=== PATIENT | female | born 1950 | race Caucasian/White ===

== ENCOUNTER → 2023-08-31 10:31 | Outpatient (REF) | payer MEDICARE, OTHER, SELFPAY ==
[2023-08-31 14:11] LABS: Erythrocyte Sed Rate 4 mm/hour (0-20)
[2023-08-31 14:22] LABS: ALT (SGPT) 71 U/L (0-35); AST (SGOT) 46 U/L (14-36); Albumin 3.6 g/dl (3.5-5.0); Alkaline Phosphatase 87 U/L (38-126); Blood Urea Nitrogen 32 mg/dl (7-17); Calcium 9.3 mg/dl (8.4-10.2); Carbon Dioxide 32 mmol/L (22-30); Chloride 100 mmol/L (98-107); Glucose 87 mg/dl (70-99); Potassium 4.9 mmol/L (3.5-5.1); Sodium 138 mmol/L (135-145); Total Bilirubin 1.3 mg/dl (0.2-1.3); eGFR > 60.00
== END ==
LOC: HWLAB 10:31
PROVIDERS: ATTENDING PHYSICIAN Internal Medicine Rheumatology; FAMILY PHYSICIAN Nurse Practitioner Family
DX: M35.3 Polymyalgia rheumatica (principal); M81.0 Age-related osteoporosis without current pathological fracture; Z51.81 Encounter for therapeutic drug level monitoring
CPT/HCPCS: 36415; 80053; 85652; 86140

== ENCOUNTER → 2023-09-28 09:04 | Outpatient (REF) | payer MEDICARE, OTHER, SELFPAY ==
[2023-09-28 12:03] LABS: % Basophils 0.5 % (0-2); % Eosinophils 0.6 % (0-6); % Immature Granulocytes 3.4 % (0-0.5); % Lymphocytes 16.2 % (20.5-51.1); % Monocytes 5.6 % (1.7-9.3); % Neutrophils 73.7 % (42.2-75.2); Absolute Basophils 0.1 10^3/uL (0-0.2); Absolute Eosinophils 0.1 10^3/uL (0-0.7); Absolute Immature Granulocytes 0.3 10^3/uL (0-0.05); Absolute Lymphocytes 1.5 10^3/uL (1.2-3.4); Absolute Monocytes 0.5 10^3/uL (0.1-0.6); Absolute Neutrophils 6.9 10^3/uL (1.4-6.5); Hematocrit 43.1 % (37.0-47.0); Hemoglobin 14.5 g/dL (12.0-16.0); Mean Corp Hgb Conc. 33.6 g/dL (33.0-37.0); Mean Corpuscular Volume 86.2 fL (81.0-99.0); Mean Platelet Volume 9.3 fL (7.4-10.4); Nucleated Red Blood Cells % 0 %; Platelet Count 242 10^3/uL (130-400); Red Cell Dist. Width 14.5 % (11.5-14.5); White Blood Cell Count 9.4 10^3/uL (4.8-10.8)
[2023-09-28 12:13] LABS: ALT (SGPT) 46 U/L (0-35); AST (SGOT) 42 U/L (14-36); Albumin 3.8 g/dl (3.5-5.0); Alkaline Phosphatase 81 U/L (38-126); Blood Urea Nitrogen 27 mg/dl (7-17); Calcium 9.6 mg/dl (8.4-10.2); Carbon Dioxide 33 mmol/L (22-30); Chloride 97 mmol/L (98-107); Glucose 124 mg/dl (70-99); Potassium 4.8 mmol/L (3.5-5.1); Sodium 136 mmol/L (135-145); Total Bilirubin 1.4 mg/dl (0.2-1.3); Total Protein 6.5 g/dl (6.3-8.2); eGFR > 60.00
[2023-09-28 12:20] LABS: Erythrocyte Sed Rate 12 mm/hour (0-20)
[2023-09-28 12:47] LABS: Hepatitis B Surface Antigen Negative (Negative)
[2023-09-28 12:53] LABS: Hepatitis B Core Ab, IgM Negative (Negative)
[2023-09-28 12:55] LABS: HIV Combo Negative (Negative)
[2023-09-28 13:06] LABS: Hepatitis B Core Ab, Total Negative (Negative); Hepatitis B Surface Antibody Negative; Hepatitis C Antibody Negative (Negative)
[2023-10-01 06:51] LABS: Quantiferon NIL 0.06 IU/mL; Quantiferon TB Gold Plus Negative (Negative)
== END ==
LOC: HWLAB 09:04
PROVIDERS: ATTENDING PHYSICIAN Internal Medicine Rheumatology; FAMILY PHYSICIAN Nurse Practitioner Family
DX: M19.012 Primary osteoarthritis, left shoulder (principal); M35.3 Polymyalgia rheumatica; M81.0 Age-related osteoporosis without current pathological fracture; R76.12 Nonspecific reaction to cell mediated immunity measurement of gamma interferon antigen response without active tuberculosis; Z51.81 Encounter for therapeutic drug level monitoring
CPT/HCPCS: 36415; 80053; 85025; 85652; 86140; 86480; 86704; 86705; 86706; 86803; 87340; 87389

== ENCOUNTER → 2023-11-29 12:09 | Outpatient (REF) | payer MEDICARE, OTHER, SELFPAY ==
[2023-11-29 14:48] LABS: % Basophils 1.1 % (0-2); % Eosinophils 1.8 % (0-6); % Immature Granulocytes 0.6 % (0-0.5); % Lymphocytes 30.7 % (20.5-51.1); % Monocytes 9.5 % (1.7-9.3); % Neutrophils 56.3 % (42.2-75.2); Absolute Basophils 0.1 10^3/uL (0-0.2); Absolute Eosinophils 0.1 10^3/uL (0-0.7); Absolute Lymphocytes 1.9 10^3/uL (1.2-3.4); Absolute Monocytes 0.6 10^3/uL (0.1-0.6); Absolute Neutrophils 3.5 10^3/uL (1.4-6.5); Hematocrit 44.8 % (37.0-47.0); Hemoglobin 14.7 g/dL (12.0-16.0); Mean Corp Hgb Conc. 32.8 g/dL (33.0-37.0); Mean Corpuscular Hgb 30.4 pg (27.0-31.0); Mean Corpuscular Volume 92.8 fL (81.0-99.0); Mean Platelet Volume 9.5 fL (7.4-10.4); Nucleated Red Blood Cells % 0 %; Platelet Count 161 10^3/uL (130-400); Red Blood Cell Count 4.83 10^6/uL (4.20-5.40); Red Cell Dist. Width 13.8 % (11.5-14.5); White Blood Cell Count 6.2 10^3/uL (4.8-10.8)
[2023-11-29 14:59] LABS: Erythrocyte Sed Rate 1 mm/hour (0-20)
[2023-11-29 15:23] LABS: ALT (SGPT) 39 U/L (0-35); AST (SGOT) 39 U/L (14-36); Albumin 4.4 g/dl (3.5-5.0); Alkaline Phosphatase 52 U/L (38-126); Blood Urea Nitrogen 24 mg/dl (7-17); Calcium 9.3 mg/dl (8.4-10.2); Carbon Dioxide 33 mmol/L (22-30); Chloride 103 mmol/L (98-107); Glucose 128 mg/dl (70-99); HDL Cholesterol 71 mg/dl; LDL Cholesterol, Calculated 69 mg/dl; Sodium 138 mmol/L (135-145); Total Bilirubin 1.1 mg/dl (0.2-1.3); Total Cholesterol 184 mg/dl (50-199); Total Protein 6.6 g/dl (6.3-8.2); Triglyceride 224 mg/dl (10-149); Very Low Density Lipoprotein 44 mg/dl (0-30); eGFR > 60.00
[2023-11-29 15:27] LABS: C-Reactive Protein < 5.00 mg/L (0.0-10.00)
[2023-11-29 16:02] LABS: TSH Reflex To Free T4 1.07 uIU/ml (0.47-4.68)
[2023-11-30 08:59] LABS: Glycohemoglobin (HgbA1c) 6.7 % (4.0-5.6)
== END ==
LOC: HWLAB 12:09
PROVIDERS: ATTENDING PHYSICIAN Internal Medicine Rheumatology; FAMILY PHYSICIAN Nurse Practitioner Family; REFERRING PHYSICIAN Nurse Practitioner
DX: Z95.2 Presence of prosthetic heart valve (principal); R60.0 Localized edema; R73.03 Prediabetes; M19.012 Primary osteoarthritis, left shoulder; M35.3 Polymyalgia rheumatica; M81.0 Age-related osteoporosis without current pathological fracture; Z51.81 Encounter for therapeutic drug level monitoring; I10 Essential (primary) hypertension
CPT/HCPCS: 36415; 80053; 80061; 83036; 84443; 85025; 85652; 86140

== ENCOUNTER → 2023-12-18 08:14 | Outpatient (REF) | payer MEDICARE, OTHER, SELFPAY | LOC: HWRCS 08:14 | PROVIDERS: ATTENDING PHYSICIAN Internal Medicine Cardiovascular Disease; FAMILY PHYSICIAN Nurse Practitioner Family | DX: Z95.2 Presence of prosthetic heart valve (principal) | CPT/HCPCS: 93306 ==

== ENCOUNTER → 2024-07-14 08:42 | Outpatient (REF) | payer MEDICARE, OTHER, SELFPAY ==
[2024-07-14 12:25] LABS: % Basophils 1.4 % (0-2); % Immature Granulocytes 0.2 % (0-0.5); % Lymphocytes 32.4 % (20.5-51.1); % Monocytes 12.6 % (1.7-9.3); % Neutrophils 49.4 % (42.2-75.2); Absolute Basophils 0.1 10^3/uL (0-0.2); Absolute Eosinophils 0.2 10^3/uL (0-0.7); Absolute Lymphocytes 1.4 10^3/uL (1.2-3.4); Absolute Monocytes 0.5 10^3/uL (0.1-0.6); Absolute Neutrophils 2.1 10^3/uL (1.4-6.5); Hematocrit 47.7 % (37.0-47.0); Hemoglobin 15.6 g/dL (12.0-16.0); Mean Corp Hgb Conc. 32.7 g/dL (33.0-37.0); Mean Corpuscular Hgb 30.5 pg (27.0-31.0); Mean Corpuscular Volume 93.3 fL (81.0-99.0); Mean Platelet Volume 9.9 fL (7.4-10.4); Nucleated Red Blood Cells % 0 %; Platelet Count 158 10^3/uL (130-400); Red Blood Cell Count 5.11 10^6/uL (4.20-5.40); Red Cell Dist. Width 12.2 % (11.5-14.5); White Blood Cell Count 4.3 10^3/uL (4.8-10.8)
[2024-07-14 12:35] LABS: Erythrocyte Sed Rate 10 mm/hour (0-20)
[2024-07-14 12:37] LABS: ALT (SGPT) 43 U/L (0-35); AST (SGOT) 51 U/L (14-36); Albumin 4.7 g/dl (3.5-5.0); Alkaline Phosphatase 35 U/L (38-126); Blood Urea Nitrogen 19 mg/dl (7-17); Calcium 9.5 mg/dl (8.4-10.2); Carbon Dioxide 34 mmol/L (22-30); Chloride 100 mmol/L (98-107); Glucose 114 mg/dl (70-99); HDL Cholesterol 59 mg/dl; LDL Cholesterol, Calculated 91 mg/dl; Potassium 4.1 mmol/L (3.5-5.1); Sodium 140 mmol/L (135-145); Total Bilirubin 1.6 mg/dl (0.2-1.3); Total Cholesterol 182 mg/dl (50-199); Total Protein 7.1 g/dl (6.3-8.2); Triglyceride 164 mg/dl (10-149); Very Low Density Lipoprotein 32 mg/dl (0-30); eGFR > 60.00
[2024-07-14 12:42] LABS: C-Reactive Protein < 5.00 mg/L (0.0-10.00)
[2024-07-14 13:04] LABS: Microalbumin, Random Urine 1.9 mg/dl (0.6-1.7); Microalbumin/creatinine Ratio 22.4 mg/g
[2024-07-14 13:06] LABS: Glycohemoglobin (HgbA1c) 5.8 % (4.0-5.6)
[2024-07-14 13:12] LABS: TSH Reflex To Free T4 1.28 uIU/ml (0.47-4.68)
== END ==
LOC: HWLAB 08:42
PROVIDERS: ATTENDING PHYSICIAN Internal Medicine Rheumatology; FAMILY PHYSICIAN Nurse Practitioner Family
DX: Z00.00 Encounter for general adult medical examination without abnormal findings (principal); B37.9 Candidiasis, unspecified; Z12.31 Encounter for screening mammogram for malignant neoplasm of breast; I48.0 Paroxysmal atrial fibrillation; E03.9 Hypothyroidism, unspecified; I10 Essential (primary) hypertension; I25.10 Atherosclerotic heart disease of native coronary artery without angina pectoris; M35.3 Polymyalgia rheumatica; M81.0 Age-related osteoporosis without current pathological fracture; R73.01 Impaired fasting glucose; Z12.11 Encounter for screening for malignant neoplasm of colon; R94.5 Abnormal results of liver function studies; E78.5 Hyperlipidemia, unspecified; E11.9 Type 2 diabetes mellitus without complications; M19.012 Primary osteoarthritis, left shoulder; M31.6 Other giant cell arteritis; Z51.81 Encounter for therapeutic drug level monitoring
CPT/HCPCS: 36415; 80053; 80061; 82043; 82570; 83036; 84443; 85025; 85652; 86140

== ENCOUNTER → 2024-11-04 10:09 | Outpatient (REF) | payer MEDICARE, OTHER, SELFPAY | LOC: HWRAD 10:09 | PROVIDERS: ATTENDING PHYSICIAN Nurse Practitioner Family | DX: R05.9 Cough, unspecified (principal) | CPT/HCPCS: 71046 ==

== ENCOUNTER → 2024-12-09 11:28 | Outpatient (REF) | payer MEDICARE, OTHER, SELFPAY ==
[2024-12-09 15:49] LABS: % Basophils 1.6 % (0-2); % Eosinophils 4.9 % (0-6); % Immature Granulocytes 0.2 % (0-0.5); % Lymphocytes 36.6 % (20.5-51.1); % Monocytes 10.6 % (1.7-9.3); % Neutrophils 46.1 % (42.2-75.2); Absolute Basophils 0.1 10^3/uL (0-0.2); Absolute Eosinophils 0.2 10^3/uL (0-0.7); Absolute Lymphocytes 1.6 10^3/uL (1.2-3.4); Absolute Monocytes 0.5 10^3/uL (0.1-0.6); Hematocrit 42.3 % (37.0-47.0); Hemoglobin 14.4 g/dL (12.0-16.0); Mean Corpuscular Hgb 30.3 pg (27.0-31.0); Mean Corpuscular Volume 89.1 fL (81.0-99.0); Mean Platelet Volume 10.3 fL (7.4-10.4); Nucleated Red Blood Cells % 0 %; Platelet Count 145 10^3/uL (130-400); Red Blood Cell Count 4.75 10^6/uL (4.20-5.40); Red Cell Dist. Width 12.5 % (11.5-14.5); White Blood Cell Count 4.3 10^3/uL (4.8-10.8)
[2024-12-09 15:57] LABS: ALT (SGPT) 43 U/L (0-35); AST (SGOT) 44 U/L (14-36); Albumin 4.3 g/dl (3.5-5.0); Alkaline Phosphatase 34 U/L (38-126); Blood Urea Nitrogen 20 mg/dl (7-17); Calcium 8.8 mg/dl (8.4-10.2); Carbon Dioxide 28 mmol/L (22-30); Chloride 109 mmol/L (98-107); Glucose 119 mg/dl (70-99); Potassium 4.2 mmol/L (3.5-5.1); Sodium 140 mmol/L (135-145); Total Bilirubin 1.5 mg/dl (0.2-1.3); Total Protein 6.4 g/dl (6.3-8.2); eGFR > 60.00
[2024-12-09 16:12] LABS: C-Reactive Protein < 5.00 mg/L (0.0-10.00)
[2024-12-09 16:31] LABS: Erythrocyte Sed Rate 1 mm/hour (0-20)
== END ==
LOC: HWLAB 11:28
PROVIDERS: ATTENDING PHYSICIAN Internal Medicine Rheumatology; FAMILY PHYSICIAN Nurse Practitioner Family
DX: M19.012 Primary osteoarthritis, left shoulder (principal); M31.6 Other giant cell arteritis; M35.3 Polymyalgia rheumatica; M81.0 Age-related osteoporosis without current pathological fracture; Z51.81 Encounter for therapeutic drug level monitoring
CPT/HCPCS: 36415; 80053; 85025; 85652; 86140

== ENCOUNTER 2025-01-02 15:55 | Observation (INO) | payer MEDICARE, OTHER, SELFPAY ==
[2025-01-02] VITALS (8 sets, daily range): BP systolic 132–180; BP diastolic 55–78; PULSE 65; BMI 34.0; BMI 32.7
[2025-01-02 11:31] LABS: % Basophils 0.9 % (0-2); % Eosinophils 2.8 % (0-6); % Immature Granulocytes 0.4 % (0-0.5); % Lymphocytes 28.7 % (20.5-51.1); % Monocytes 9.5 % (1.7-9.3); % Neutrophils 57.7 % (42.2-75.2); Absolute Basophils 0.1 10^3/uL (0-0.2); Absolute Eosinophils 0.2 10^3/uL (0-0.7); Absolute Lymphocytes 2.2 10^3/uL (1.2-3.4); Absolute Monocytes 0.7 10^3/uL (0.1-0.6); Absolute Neutrophils 4.4 10^3/uL (1.4-6.5); Hematocrit 42.6 % (37.0-47.0); Hemoglobin 14.9 g/dL (12.0-16.0); Mean Corpuscular Hgb 30.7 pg (27.0-31.0); Mean Corpuscular Volume 87.7 fL (81.0-99.0); Mean Platelet Volume 9.5 fL (7.4-10.4); Nucleated Red Blood Cells % 0 %; Platelet Count 157 10^3/uL (130-400); Red Blood Cell Count 4.86 10^6/uL (4.20-5.40); Red Cell Dist. Width 12.5 % (11.5-14.5); White Blood Cell Count 7.6 10^3/uL (4.8-10.8)
[2025-01-02 11:47] LABS: Blood Urea Nitrogen 16 mg/dl (7-17); Calcium 9.3 mg/dl (8.4-10.2); Carbon Dioxide 32 mmol/L (22-30); Chloride 104 mmol/L (98-107); Estimated Creatinine Clearance 76 ml/min; Glucose 123 mg/dl (70-99); Sodium 141 mmol/L (135-145); eGFR > 60.00
--- NOTE | 2025-01-02 14:13 | ED.GENMED ---
History of Present Illness
General
Chief Complaint: Dizziness
Source: patient and family (daughters at bedside)
Exam Limitations: none
Time Seen by Provider: 01/02/25 11:48
Nursing documentation reviewed up to this point in time: agreed with
History of Present Illness
History of Present Illness:
75 yo female w h/o aortic stenosis, atrial fibrillation on Coumadin, history of PMR, giant cell arteritis diagnosed 1.5 years ago and was on Actemra IV infusions monthly until it was DC'd 2 weeks ago due to a sinus infection and UTI.
Patient is here for sudden onset nausea, dizziness, perioral and left hand numbness while she was sitting, talking with her daughter 10 a.m.
Had similar symptoms 5 days ago, evaluated at [facility] with neg head CT. On arrival, pt w mild nausea but no other symptoms as long as she was still. Dizzy with moving head.
No recent trauma
Was on Actemera for head pains due to GCA and that was DC'd, and her head pains have started again.
Past History
Past History
ED Past Medical History: Arrthythmia, Cancer (Ovarian cancer), HTN, Hypercholesterolemia and Hypothyroidism
ED Past Surgical History: Cardiac (Aortic and mitral valve repair, 2016... Pacemaker), Gynecological, Orthopedic and Other (Thyroidectomy)
Social History
Tobacco: Former smoker
Alcohol: None
Drug: None
Personal:
Living: with family
Review of Systems
Review of Systems
Allergies reviewed?: Yes
All Other Systems: ROS reviewed and negative except as documented in HPI and ROS
Constitutional: Denies fever or fatigue
Respiratory: Denies trouble breathing
Cardiac: Denies chest pain
ABD/GI: Reports nausea; Denies abdominal pain, vomiting or diarrhea
: Denies dysuria, incontinence or difficulty voiding
Musculoskeletal: Reports no symptoms; Denies edema
Skin: Reports no symptoms
Neurological: Reports dizzy and headache (Intermittent head pains from giant cell arteritis); Denies weakness or numbness
Phy Exam
Physical Exam
Physical Exam:
GENERAL: No acute distress. A&Ox3.
CONSTITUTIONAL: Afebrile.
EYES: clear, R conjunctival hemorrhage post injection, lazy left eye with limited vision
ENMT: moist mucus membranes, Pharynx nl
RESPIRATORY: Regular respirations, nonlabored, lungs clear.
CARDIOVASCULAR: Regular rate and rhythm, no murmurs, no rubs.
GI: Soft, nontender, normal BS
MUSCULOSKELETAL: Moves with ease. Well perfused.
SKIN: Warm, dry, pink
PSYCH: Normal mood and affect. Well kept, interactive and appropriate
NEUROLOGIC: Awake, alert and oriented. Speech clear. CN 2-12 intact. Strength equal throughout. No focal neurological deficits
Scores
NIH Stroke Score
Level of Consciousness: 0 - Alert
LOC Questions: 0-Answers both correctly
LOC Commands: 0-Performs both correctly
Best Horizontal Gaze: 0-Normal
Visual Lamb: 0=Normal, no visual loss (poor vision left eye (chronic))
Facial Palsy: 0=Normal, symmetrical
Motor - Right Arm: 0=No drift 10 seconds
Motor - Left Arm: 0=No drift 10 seconds
Motor - Right Le-No drift 5 seconds
Motor - Left Le-No drift 5 seconds
Limb Ataxia: 0-Absent
Sensation: 0-Normal
Best Language: 0-No aphasia
Dysarthria: 0-Normal
Extinction and Inattention: 0-No abnormality
NIH Total Score:: 0
Course
Orders/Labs/Results
Orders:
Orders
01/02/25 11:01
Electrocardiogram (*1) Urgent
Reason for Study: Vertigo / Dizzy
EKG- Treatment ONCE
01/02/25 11:20
Basic Metabolic Panel Urgent
C-Reactive Protein Urgent
Comment: ADD ON
Complete Blood Count/With Diff Urgent
Erythrocyte Sed Rate Urgent
Comment: ADD ON
01/02/25 11:57
CT Head W/o Iv Contrast Urgent
Comment:
Reason For Exam: dizzy, n/v
01/02/25 12:10
Physical Therapy Consult [Pt Eval And Treat] Urgent
Treatment: Vestibular evaluation
Activity Level: As Tolerated
01/02/25 14:32
Add On- LAB Urgent
Tests Added?: CRP, Sed rate
01/02/25 14:36
Prothrombin Time Urgent
01/02/25 15:33
Admit/Transfer Patient As Directed
Co-Sign Provider:
Level of Care: Observation services
Assign to:: Telemetry
Physician / Group: Hospitalist
Diagnosis: Neurologic Impairment
Reason for Telemetry: Medication for Arrhythmia
Date to Stop Telemetry: 01/04/25
Time to Stop Telemetry: 11:00
01/02/25 15:34
PRN Pain Medication Management As Directed
May give lesser potent ordered pain med per pt: Yes
preference::
Protocol:: Medication orders for pain may be administered in a
manner that supports deferring to patient preference
when the pt is:
- Requesting an ordered lesser potent pain medication.
Least to most potent pain medications are defined
as: acetaminophen < NSAID < tramadol < opioids
(morphine, oxycodone, hydromorphone).
- Requesting a lesser dose of the same medication IF
ORDERED.
- Requesting a less intrusive route of administration
if both routes are prescribed by the provider (PO <
IV).
01/02/25 15:39
Code Status As Directed
Resuscitation Status: Do not resuscitate
Reached after discussion with pt or family/Healthcare POA: Yes
Based on pt advanced directive or healthcare POA form: Yes
Physician note:: Patient has a living will.
DNR Bracelet Application ONCE
01/02/25 16:35
Bisacodyl [Dulcolax] 10 mg RECTAL [id number] PRN
Docusate W/Senna [Senokot-S] 1 tablet PO BIDPRN PRN
Furosemide [Lasix] 40 mg PO DAILY
Polyethylene Glycol Powder [Miralax] 17 grams PO DAILYPRN PRN
01/02/25 16:35
CT Head & Neck Angio W/wo IV Routine
Comment:
Reason For Exam: Neurologic Impairment
NEUROLOGY CONSULT Routine
Consulting Provider: Gunner Hurtado
Was physician already notified: Yes
Activity As Directed
Activity Level: As Tolerated
NIH Stroke Scale As Directed
Directions: Per protocol
Comment: q6h
Orthostatic Vital Signs As Directed
Orthostatic VS Frequency: Now
Vital Signs As Directed
Frequency: Per unit guidelines
DX Deep Vein Thrombosis Video Routine
01/02/25 18:00
Polymyxin B/Trimethoprim [Polytrim Ophthalmic Solution] See Dose Instructions RIGHT EYE QID
01/02/25 20:00
Brimonidine [Alphagan P 0.15% Eye Drops] See Dose Instructions RIGHT EYE BID
Lisinopril [Zestril] 10 mg PO BID
01/02/25 22:00
Metoprolol Xl [Toprol Xl] 50 mg PO HS
Rosuvastatin Calcium [Crestor] 10 mg PO HS
01/03/25 Breakfast
Regular
At Your Request: Full Participation
Does patient need a safe tray?: No
Basic Metabolic Panel IN AM
Complete Blood Count/No Diff IN AM
Levothyroxine [Synthroid] 100 mcg PO DAILY @ 0600
01/03/25 08:00
Ascorbic Acid [Vitamin C] 1,000 mg PO DAILY
Metoprolol Xl [Toprol Xl] 100 mg PO DAILY
Multivitamin [Theragran] 1 tablet PO DAILY
Potassium Chloride [KCl] 20 meq PO DAILY
Prednisone [Deltasone] 15 mg PO DAILY
01/03/25 18:00
Warfarin [Coumadin] 6 mg PO [id number]@1800
01/04/25 11:00
DC Protocol for Telemetry ONCE
01/06/25 18:00
Warfarin [Coumadin] 4 mg PO TU@1800
Abnormal Lab Results
01/02/25 01/02/25
11:20 14:36
Absolute Monos (auto) 0.7 H 10^3/uL
(0.1-0.6)
Monocytes % 9.5 H %
(1.7-9.3)
PT 27.3 H Sec
(11.4-14.6)
Carbon Dioxide 32 H mmol/L
(22-30)
Glucose 123 H mg/dl
(70-99)
01/02/25 11:20
01/02/25 11:20
Vital Signs
Initial and Last Documented VS:
Initial Vital Signs
Temp Pulse Resp BP Pulse Ox
98 F 74 16 180/74 94
01/02/25 11:01 01/02/25 11:01 01/02/25 11:01 01/02/25 11:01 01/02/25 11:01
Last Documented Vital Signs
Temp Pulse Resp BP Pulse Ox
98.7 F 68 16 178/78 98
01/02/25 16:35 01/02/25 18:11 01/02/25 16:35 01/02/25 18:11 01/02/25 16:35
MDM/Problems Addressed
Differential Diagnosis Includes:
BPPV, Labrynthitis, vestibular neuritis, TIA/CVA
Flare of GCA
MDM/Problems Addressed:
75 yo female w h/o aortic stenosis, atrial fibrillation on Coumadin, history of PMR, giant cell arteritis diagnosed 1.5 years ago and was on Actemra IV infusions monthly until it was DC'd 2 weeks ago due to a sinus infection and UTI.
Patient is here for sudden onset nausea, dizziness, perioral and left hand numbness while she was sitting, talking with her daughter 10 a.m.
Had similar symptoms 5 days ago, evaluated at [place] with neg head CT. On arrival, pt w mild nausea but no other symptoms as long as she was still. Dizzy with moving head.
No recent trauma
Was on Actemera for head pains due to GCA and that was DC'd, and her head pains have started again.
CBC normal
CMP with no clinically significant abnormality
Head CT neg
P/T in and pt positive nystagmus to the right. Nausea elicited with maneuvers, pt developed perioral paresthesia after maneuvers.
Plan: Admit for further neuro workup
Hospitalist notified of admission
*Critical Care Note
Total Time (30-74mins, 75-104mins- exclusive of procedures): Not Applicable
ED Attending Note
-
Portions of this chart may have been created with voice recognition software.� Occasional wrong word or��sound alike� substitutions may have occurred due to the inherent limitations of voice recognition software.
Discharge Plan
Departure
Patient Disposition: Admit
Date of Disposition: 01/02/25
Time of Disposition: 14:24
Admit to: Med/Surg
Presentation/result/management discussed w/ accepting MD/DO: Hospitalist
Condition: Fair
Discharge Problem:
GCA (giant cell arteritis), Paresthesias
Interventions
Interventions:
*Risk Screen - Suicide Last Done: 01/02/25 16:00
*General Assessment Last Done: 01/02/25 11:05
*Neglect/Abuse Screening Last Done: 01/02/25 11:05
*ED- Fall Risk Assessment Last Done: 01/02/25 11:05
*ED COVID-19 Vaccine History Last Done: 01/02/25 16:00
*Nursing Disposition Last Done: 01/02/25 16:10
ED- Neurological Assessment Last Done: 01/02/25 11:05
ED- Cardiac Assessment Last Done: 01/02/25 16:10
ED Swallowing Screen Last Done: 01/02/25 11:06
Discharge Date and Time
Discharge Date/Time: 01/02/25 16:39
[2025-01-02 15:10] LABS: Erythrocyte Sed Rate 9 mm/hour (0-20)
[2025-01-02 15:12] LABS: INR 2.53; PT 27.3 Sec (11.4-14.6)
--- NOTE | 2025-01-02 15:36 | W.PN.UPDATE ---
Update Note
Progress Note Update
I personally performed a history and physical exam of the patient and discussed management with the resident. I reviewed the resident's note and agree with the documented findings and plan of care HPI/CC.
Patient is a 75-year-old female with past medical history of A-fib status post ablation on warfarin, essential hypertension, hyperlipidemia, history of giant cell arteritis, PMR, chronic steroid use, left eye congenital cataract, right eye macular
degeneration was brought into ER for further evaluation after patient had episode of dizziness and associated neurological symptoms. Apparently patient was sitting up in the kitchen around 10:30 in the morning today when all of a sudden started
feeling dizzy associated with minimal diaphoresis/nausea/feeling clammy. No palpitations/dyspnea reported. With this patient noted mao-oral numbness and left hand numbness as well. Symptoms resolved spontaneously by the time patient was brought
into ER by EMS. In ER patient had a CT head which did not show any acute issues. Patient is being admitted for further evaluation.
Of note patient had similar episode on Sunday which also cleared, patient had contacted her primary alpine patroller who had increased patient prednisone from 1 mg to 50 mg for concern of GCA flareup. Patient was recently taken off of Actemra 2 weeks
back as a trial to check this.
HEENT: Left eye strabismus, Right eye conjunctival hemorrhage
NECK: Supple. No JVD.
RESPIRATORY: Lungs clear to auscultation.
CVS: S1, S2 normal. RRR. No murmur, rub or gallop.
ABDOMEN: Soft, non-tender. No distension. BS+/normal.
EXTREMITIES: No peripheral cyanosis or edema.
FISHING TOOL TECHNICIAN OIL WELL: AOx3. No focal deficits.
1. Perioral and left hand numbness
- Symptoms mainly occurring when patient was feeling dizzy as well
- Spontaneous resolution without any further intervention
- Denies previous history of TIA/CVA
- Has a history of GCA, check CTA H&N if any flow-limiting restriction would explain the symptoms as happened when patient was dizzy and likely Hypotensive.
- Symptom does not seem to coordinate with true neurological distribution, TIA seems less likely
- Neurology evaluation requested
2. Presyncope
- Check Ortho vitals
- Patient actually hypertensive in ER, would continue home regimen of BP medication
3. History of giant cell arteritis
History of PM
- Patient had mainly symptoms of jaw claudication/unilateral headache. Visual loss already present with congenital cataract
- No formal temporal biopsy done
- Patient was managed with Actemra 2 weeks
- Prednisone was on 1 mg daily which was increased to 15 mg daily after patient having new symptoms earlier in week, continue same dose for now
- Dr. Christine Villeda is patient's primary rheumatology
4. History of atrial fibrillation status post ablation
History of pacemaker placed
H/o s/p mechanical AVR
-EKG reviewed and currently in atrial paced rhythm
-Maintain on home dose of warfarin, INR goal of 2-3
DVT PPX - warfarin
Full code
Total time spent : 78 mins
I personally saw and examined the patient.
I have reviewed all diagnostic interpretations and treatment plans as written.
Time includes patient management by me, time spent at the patients bedside, time to review lab and imaging results, discussing patient care, documentation in the medical record, and time spent with the family or caregiver and discussing care plan
with RN/Consultants.
--- NOTE | 2025-01-02 16:32 | CM ---
Patient seen in ED with 2 daughters. Patient stated that today is her birthday. Patient lives with 3rd daughter currently away on vacation. Patient currently staying with daughter here at ED. Patient has no DME at home no past need for VN. Patient
home is a 2 story home. PCP is Dr. Lerner and she uses the [facility] in [place] for her pharmacy needs. Patient daughters reviewed OBS/IQBAL form and signed form given to the ED coding file clerk for scanning. CM will continue to follow for discharge
planning needs.
Plan; home with daughters; watch for Vn needs.
--- NOTE | 2025-01-02 16:32 | HPS.HSE ---
Addendum entered and electronically signed by Lupillo Ponce MD 01/03/25 14:23:
I personally performed a history and physical exam of the patient and discussed management with the resident. I reviewed the resident's note and agree with the documented findings and plan of care HPI/CC.
Original Note:
Family Physician
-
Family Physician: CASEY Weir
Chief Complaint
-
Dizziness, perioral numbness, left hand tingling
History of Present Illness
Yusra Oliveros is a 75-year-old female with a past medical history of aortic stenosis, atrial fibrillation (on Coumadin), polymyalgia rheumatica, giant cell arteritis, hypertension, hyperlipidemia, hypothyroidism, and mechanical aortic and mitral
valves who presented to the emergency department for dizziness.
Patient states that she was sitting at the dinner table earlier today when all of a sudden she started to feel dizzy. This was associated with nausea, diaphoresis and clamminess and eventually vomiting. The episode lasted approximately 15 minutes.
She denied any palpitations, dyspnea, weakness, speech changes, or facial droop. She did however notice perioral numbness and numbness/tingling of the left hand. Symptoms resolved spontaneously. She notes that she had a similar episode 5 days
ago.
Notably the patient has a history of giant cell arteritis for which she was being treated with Actemra. Actemra was discontinued by her system software developer (Christine Baltazar MD) 2 weeks ago due to sinus infections and a UTI. After the patient's
first episode of dizziness and temporary neurologic impairment 5 days ago, the patient was started on prednisone 15 mg for concern of GCA flare.
Evaluation in the emergency department did not reveal any cause. CT of the head did not show any acute abnormalities. EKG unchanged from 04/23/2023.
Medical History
Past Medical History
Past Medical History: Reports Other
Additional Past Medical History:
Aortic stenosis, atrial fibrillation, polymyalgia rheumatica, giant cell arteritis, hypertension, hyperlipidemia, hypothyroidism, chronic steroid use, left eye congenital cataract, right eye macular degeneration
Past Surgical History: Reports Other
Additional Past Surgical History:
Aortic valve repair, mitral valve repair, orthopedic surgery, thyroidectomy
Social History
Tobacco: Former Smoker (Quit smoking in 1992)
Alcohol: None
Personal:
Living: With Family
Family History
Family History: Not pertinent
Allergies / Home Medications
Allergies reflects when Allergies were last updated in [facility].
Home Medications with original date entered in [facility]
Allergy/Medication List:
Allergies
Latex�rash
Oxycodone�vomiting
Medications
Levothyroxine 100 mcg daily
Warfarin 6 mg daily every day except Sunday
Warfarin 4 mg on Sunday
Metoprolol 150 mg daily
Potassium 20 mill equivalents daily
Rosuvastatin 10 mg daily
Lasix 40 mg daily
Prednisone 15 mg daily
Meclizine 25 mg 3 times daily as needed
Lisinopril 10 mg twice daily
Brimonidine 1 drop in the right eye twice daily
Prolia 60 mg SQ every 6 months
Polymyxin B sulf trimethoprim 1 drop in the right eye 4 times daily
Review of Systems
-
History Source: Patient
A 12 point ROS was completed and negative except as noted: Yes
Physical Exam
Vital Signs
Vital Signs
Temp Pulse Resp BP Pulse Ox
98 F 60 16 162/69 97
01/02/25 11:01 01/02/25 16:23 01/02/25 16:23 01/02/25 16:23 01/02/25 16:23
Physical Exam
General: No Apparent Distress, Comfortable and Conversant
HEENT: NormoCephalic, Anicteric and Other (Strabismus of the left eye, right eye conjunctival injection)
Respiratory: Clear; No Wheezes, Rales or Rhonchi
Cardiac: S1/S2; No Murmur, Rub or Gallop
GI: Soft, Non Tender, Non Distended and Normal Bowel Sounds
Musculoskeletal: No Clubbing, No Cyanosis and No Edema
Skin: Warm and Dry
Neuro: Awake, Alert, Oriented and Nonfocal/grossly intact
Psych: Calm
Laboratory Results
-
01/02/25 11:20
01/02/25 11:20
Laboratory Results
PT 27.3 Sec (11.4-14.6) H 01/02/25 14:36
INR 2.53 01/02/25 14:36
Total Bilirubin Cancelled 01/02/25 11:20
AST Cancelled 01/02/25 11:20
ALT Cancelled 01/02/25 11:20
Alkaline Phosphatase Cancelled 01/02/25 11:20
Data Reviewed
-
CT Scan: Image Personally Visualized and interpreted, Report Reviewed by me and Discussed with Patient
Medical Tests (Nuc Med, Echo, EKG etc): Image Personally Visualized and interpreted, Report Reviewed by me and Discussed with Patient
Lab Data: Labs Reviewed by me and Discussed with Family
Impression/Plan
-
1.perioral numbness/left hand paresthesia
-Episode lasting 15 minutes with spontaneous resolution
-No past medical history of TIA/CVA
-CTA head and neck (01/02):
-Hold off on MRI for now, stroke seems less likely given distribution of symptoms
-Neuro consult
-NIHSS every 6 hours
2. Presyncope
-Orthostatic vital signs
-Hypertensive in ER, continue home meds
3. GCA
-Continue prednisone for now
-ESR/CRP
-Symptoms do not match prior flares (jaw claudication/unilateral headache/scalp tenderness)
-Patient has ipsilateral congenital blindness
4. A-fib status post ablation on warfarin
-Patient has pacemaker
-Continue home dose warfarin with INR goal 2-3
DVT PPX - Warfarin
Code: DNR, Living Will
Diet: Regular
Car Worker: Kiara
Rheum: Giovanny
[2025-01-02 17:15] LABS: C-Reactive Protein < 5.00 mg/L (0.0-10.00)
[2025-01-02] MEDS: LASIX 40 MG PO (18:11)
[2025-01-02] MEDS: POLYTRIM OPHTHALMIC SOLUTION 1 DROP RIGHT EYE ×2 (18:12→21:46)
[2025-01-02] MEDS: ALPHAGAN P 0.15% EYE DROPS 1 DROP RIGHT EYE (21:46)
[2025-01-02] MEDS: ZESTRIL 10 MG PO (21:47)
[2025-01-02] MEDS: TOPROL XL 50 MG PO (21:47)
[2025-01-02] MEDS: CRESTOR 10 MG PO (21:47)
[2025-01-02] MEDS: COUMADIN 6 MG PO (23:35)
[2025-01-03] VITALS (10 sets, daily range): BP systolic 137–192; BP diastolic 55–83; PULSE 72; O2SAT 96
[2025-01-03] MEDS: SYNTHROID 100 MCG PO (05:24)
[2025-01-03 06:24] LABS: Hemoglobin 14.1 g/dL (12.0-16.0); Mean Corp Hgb Conc. 34.4 g/dL (33.0-37.0); Mean Corpuscular Hgb 30.3 pg (27.0-31.0); Mean Corpuscular Volume 88.2 fL (81.0-99.0); Mean Platelet Volume 9.6 fL (7.4-10.4); Platelet Count 157 10^3/uL (130-400); Red Blood Cell Count 4.65 10^6/uL (4.20-5.40); Red Cell Dist. Width 12.6 % (11.5-14.5); White Blood Cell Count 9.2 10^3/uL (4.8-10.8)
[2025-01-03 06:48] LABS: Blood Urea Nitrogen 19 mg/dl (7-17); Calcium 9.1 mg/dl (8.4-10.2); Carbon Dioxide 27 mmol/L (22-30); Chloride 109 mmol/L (98-107); Estimated Creatinine Clearance 74 ml/min; Glucose 95 mg/dl (70-99); Potassium 4.1 mmol/L (3.5-5.1); Sodium 140 mmol/L (135-145); eGFR > 60.00
--- NOTE | 2025-01-03 07:50 | CON.NEURO ---
Neuro Assessment/Plan
Assessment
Acute onset perioral skin sensation change with left arm sensation change followed by mild headache while off of tocilizumab utilized for control over giant cell arteritis. Complicating the diagnosis is the normal ESR, making it less likely that
this is a flareup of giant cell arteritis.
Despite a absence of significant headaches in this patient although a strong family history of migraine, most likely diagnosis is migraine with aura. The concerns with the patient having nausea emesis followed immediately by urinary and bowel
incontinence can be tempered by the fact that the patient was aware of the need to empty her bowels immediately before having the issue.
Plan
no clear need for check of MRI of brain
tocilizumab should be restarted with routine therapy for increased infection rate if at all possible
Attempt of lower steroids when possible
Provide routine ondansetron in hopes of reducing the patient's residual nausea and can be used as needed for headache
Will follow as needed
Consultation
Order
Date of Consultation: 01/03/25
Requesting Provider: Hospitalist
Reason for Consult: Perioral sensation change
Subjective/Objective
Subjective Data
Date of Service: January 03, 2025
Right-handed
Patient presented to this hospital's emergency department with recurrent, sudden onset nausea, dizziness, perioral numbness and left hand numbness while being inactive. The first event was 5 days prior to presentation, 6 days ago at which time the
patient presented to a local outside hospital which was evaluated by CT of head.
Entire mao-oral area with left hand sensation change lasting 30 minutes, eventually dizziness minutes later took place then improved after emesis. Entire event 45 minutes twice.
Identical events, twice, first was in shower. No associated symptoms otherwise except for sharp head discomfort. Continued sense of nausea, able to eat.
Patient has a history of motion-sickness. Headaches on left-side of head, started 18 months ago. Patient skipped usual tocilizumab dosing due to SE (infections) for December 2024 leading to recurrence of headaches. Increase in prednisone from 1 mg to 15
mg in past few days due to initial recent event. Not previously with history of migraine with aura.
By medical records, the patient presented to her primary care provider on December 14, 2024, due to urinary frequency and urgency. The patient was then provided with cephalexin.
Objective Data
Vital Signs
Temp Pulse Resp BP Pulse Ox
36.4 C 91 12 144/65 97
01/03/25 03:05 01/03/25 03:05 01/03/25 03:05 01/03/25 03:05 01/03/25 03:05
Lab Results
01/03/25 06:05
01/03/25 06:05
PT 27.3 Sec (11.4-14.6) H 01/02/25 14:36
INR 2.53 01/02/25 14:36
Sodium 140 mmol/L (135-145) 01/03/25 06:05
Potassium 4.1 mmol/L (3.5-5.1) 01/03/25 06:05
BUN 19 mg/dl (7-17) H 01/03/25 06:05
Glucose 95 mg/dl (70-99) 01/03/25 06:05
Calcium 9.1 mg/dl (8.4-10.2) 01/03/25 06:05
Patient Allergies
latex Allergy (Verified 04/29/23 09:58)
Rash
oxycodone HCl (From Percocet) Allergy (Verified 04/29/23 09:58)
Vomiting
Review of Systems
-
History Source: Patient
All other systems: Reviewed and negative
Respiratory: Negative Trouble Breathing
Cardiac: Negative Chest Pain
Abdomen/GI: Incontinence of Stool
Genitourinary: Incontinence
Musculoskeletal: Negative Back Pain or Neck Pain
Neuro: Dizzy and Headache (lasting minutes)
Physical Exam
-
General: No Apparent Distress and Appears Stated Age
Eyes: OU Absent Papilledema, Round OU, Imbler Conjunctivae and No Ptosis
HEENT: Anicteric, Moist Mucous Membranes and Other (Subconjunctival hemorrhages right eye greater than left)
Neck: Full Range of Motion
Respiratory: No Dyspnea
Cardiac: No JVD
GI: Non-distended
Skin: Unremarkable
Extremities: No Clubbing, No Cyanosis and No Edema
Psych: Intact Judgement/Insight
Extended Neurological Exam
Mood & Affect: Mood Unremarkable and Affect Unremarkable
Attention Span & Concentration: Awake, Alert, Interactive and No Difficulty with 2 Step Request
Memory: Unremarkable
Tremor: Hand Tremor Absent and Head Tremor Absent
Speech: Quality Unremarkable and Quantity Unremarkable
Cranial Nerve II: Left Eye: Pupillary Reactivity Unremarkable, Pupillary Size Unremarkable and Visual Lamb Intact
Cranial Nerve II: Right Eye: Pupillary Reactivity Unremarkable, Pupillary Size Unremarkable and Visual Lamb Intact
Cranial Nerves III, IV, : Extraocular Movement: Extraocular Movement Full in all Directions and Other (2+ left eye esophoria)
Cranial Nerve VII: Facial Symmetry: Normal Facial Symmetry
Cranial Nerve VIII: Hearing: Unremarkable Hearing to Normal Conversational Volume
Cranial Nerves IX, X: Palate Movement: Palate Elevation Symmetric
Cranial Nerve XI: Shoulder Shrug: Unremarkable
Cranial Nerve XII: Tongue Protusion: Midline
Muscle Strength, Overall: Full Throughout
Muscle Bulk & Tone: Bulk Unremarkable and Tone Unremarkable
Pronator Drift: No Drift in Upper Extremities
Deep Tendon Reflexes: Trace Throughout
Touch Sensation: Unremarkable
Coordination: Djslko-zoka-yjlion Testing Unremarkable
Babinski Sign: Absent Bilaterally
Data Reviewed
-
CT-A: Report Reviewed
CT Head: Report Reviewed
Labs: Report Reviewed
Reviewed with: Physician and Patient
Old Records: Summarized
Medications
-
Active Medications
Generic Name Dose Route Start Last Admin
Trade Name Freq PRN Reason Stop Dose Admin
Ascorbic Acid 1,000 mg 01/03/25 08:00
Ascorbic Acid 500 Mg Tablet PO 01/31/25 07:59
DAILY BRIANNE
Bisacodyl 10 mg 01/02/25 16:35
Bisacodyl 10 Mg Rectal Suppository RECTAL 01/30/25 16:34
[id number] PRN
constipation
Brimonidine Tartrate 0 drop 01/02/25 20:00 01/02/25 21:46
Brimonidine 0.15% (Ophthalmic Solution) 5 Ml Bottle RIGHT EYE 01/30/25 19:59 1 drop
BID BRIANNE Administration
Furosemide 40 mg 01/02/25 16:35 01/02/25 18:11
Furosemide 40 Mg Tablet PO 01/30/25 16:34 40 mg
DAILY BRIANNE Administration
Levothyroxine Sodium 100 mcg 01/03/25 06:00 01/03/25 05:24
Levothyroxine 100 Mcg Tablet PO 01/31/25 05:59 100 mcg
DAILY @ 0600 BRIANNE Administration
Lisinopril 10 mg 01/02/25 20:00 01/02/25 21:47
Lisinopril 10 Mg Tablet PO 01/30/25 19:59 10 mg
BID BRIANNE Administration
Metoprolol Succinate 100 mg 01/03/25 08:00
Metoprolol 100 Mg Extended Release Tablet PO 01/31/25 07:59
DAILY BRIANNE
Metoprolol Succinate 50 mg 01/02/25 22:00 01/02/25 21:47
Metoprolol 50 Mg Extended Release Tablet PO 01/30/25 21:59 50 mg
HS BRIANNE Administration
Multivitamins Therapeutic 1 tablet 01/03/25 08:00
Multivitamin Tablet PO 01/31/25 07:59
DAILY BRIANNE
Polyethylene Glycol 17 grams 01/02/25 16:35
Polyethylene Glycol Powder 17 Grams Packet PO 01/30/25 16:34
DAILYPRN PRN
constipation
Polymyxin/Trimethoprim Sulfate 0 drop 01/02/25 18:00 01/02/25 21:46
Polymyxin B/Trimethoprim (Ophthalmic Solution) 10 Ml Bottle RIGHT EYE 01/30/25 17:59 1 drop
QID BRIANNE Administration
Potassium Chloride 20 meq 01/03/25 08:00
Potassium Chloride 20 Meq Extended Release Tablet PO 01/31/25 07:59
DAILY BRIANNE
Prednisone 15 mg 01/03/25 08:00
Prednisone 5 Mg Tablet PO 01/31/25 07:59
DAILY BRIANNE
Rosuvastatin Calcium 10 mg 01/02/25 22:00 01/02/25 21:47
Rosuvastatin (Crestor) 10 Mg Tablet PO 01/30/25 21:59 10 mg
HS BRIANNE Administration
Senna/Docusate Sodium 1 tablet 01/02/25 16:35
Docusate W/Senna (Mao-Colace) Tablet PO 01/30/25 16:34
BIDPRN PRN
constipation
Warfarin Sodium 4 mg 01/06/25 18:00
Warfarin 2 Mg Tablet PO 01/11/25 17:59
TU@1800 BRIANNE
Warfarin Sodium 6 mg 01/02/25 23:00 01/02/25 23:35
Warfarin 2 Mg Tablet PO 01/07/25 22:59 6 mg
[id number] [facility] Administration
Home Medications
�Medication �Instructions �Recorded
levothyroxine 100 mcg tablet 100 mcg PO DAILY 04/05/16
warfarin 2 mg tablet (Jantoven) 4 mg PO TU 03/22/18
warfarin 2 mg tablet (Jantoven) 6 mg PO SUSA 03/22/18
metoprolol succinate 100 mg 100 mg PO DAILY 05/28/18
tablet,extended release 24 hr
potassium chloride 20 mEq 20 meq PO DAILY 05/28/18
tablet,extended
release(part/cryst) (Klor-Con M)
rosuvastatin 10 mg tablet 10 mg PO HS 05/28/18
furosemide 40 mg tablet (Lasix) 40 mg PO DAILY #0 tabs 06/01/18
metoprolol succinate 50 mg 50 mg PO HS 04/23/23
tablet,extended release 24 hr
prednisone 5 mg tablet 15 mg PO DAILY 04/23/23
ascorbic acid (vitamin C) 1,000 mg 1,000 mg PO DAILY 01/02/25
tablet,extended release (Vitamin C
ER)
brimonidine 0.15 % eye drops 1 drp RIGHT EYE BID 01/02/25
cinnamon bark 500 mg capsule 1,000 mg PO DAILY 01/02/25
(Cinnamon)
denosumab 60 mg/mL subcutaneous 60 mg SC [id number] 01/02/25
syringe (Prolia)
lactobacillus combination no.4 3 3 mmu cells PO DAILY 01/02/25
billion cell capsule (Probiotic)
lisinopril 10 mg tablet 10 mg PO BID 01/02/25
meclizine 25 mg tablet 25 mg PO TIDPRN PRN VERTIGO 01/02/25
multivitamin 1 tab PO DAILY 01/02/25
polymyxin B sulfate 10,000 1 drp RIGHT EYE QID 01/02/25
unit-trimethoprim 1 mg/mL eye drops
Past History
Past History
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
ED Past Surgical History: Cardiac (Aortic and mitral valve repair, 2016... Pacemaker), Gynecological, Orthopedic (Carpal tunnel syndrome) and Other (Thyroidectomy)
Social History
Tobacco: Former smoker
Alcohol: None
Drug: None
Personal:
Living: with family
Family History
Family History: Other (Reviewed and noncontributory)
[2025-01-03] MEDS: KCL 20 MEQ PO (09:49)
[2025-01-03] MEDS: THERAGRAN 1 TABLET PO (09:50)
[2025-01-03] MEDS: DELTASONE 15 MG PO (09:50)
[2025-01-03] MEDS: VITAMIN C 1000 MG PO (09:50)
[2025-01-03] MEDS: LASIX 40 MG PO (09:50)
[2025-01-03] MEDS: ZESTRIL 10 MG PO (09:50)
[2025-01-03] MEDS: SENOKOT-S 1 TABLET PO (09:50)
[2025-01-03] MEDS: ALPHAGAN P 0.15% EYE DROPS 1 DROP RIGHT EYE ×2 (09:51→20:47)
[2025-01-03] MEDS: POLYTRIM OPHTHALMIC SOLUTION 1 DROP RIGHT EYE ×4 (09:51→20:47)
[2025-01-03] MEDS: TOPROL XL 100 MG PO (09:52)
[2025-01-03 09:54] LABS: TSH Reflex To Free T4 1.34 uIU/ml (0.47-4.68)
[2025-01-03 10:30] LABS: Folate > 20.0 ng/ml (2.76-20); Vitamin B12 639 pg/ml (239-931)
[2025-01-03] MEDS: COZAAR 25 MG PO (13:32)
--- NOTE | 2025-01-03 14:23 | W.PN.HOSP.TC ---
Today's Communication/Plan
-
recheck BP afer losartan
possible d/c later today
Assessment / Plan
Assessment / Plan
1. Perioral and left hand numbness
- Symptoms mainly occurring when patient was feeling dizzy as well
- Spontaneous resolution without any further intervention
- Denies previous history of TIA/CVA
- Has a history of GCA, ESR/CRP negative. CTA h&n did not show acute abnormality. MRA head and neck not indicated as no clear supporting evidence of GCA flareup.
- Neurology evaluated and care plan discussed with on-call circulation supervisor who agreed with patient to be continued on home dose of prednisone 15mg/d
2. Presyncope
Essential HTN - uncontrolled
- Recommended patient to wear compression stockings
- Check blood pressure if patient have further episode of dizziness at home
- Patient hypertensive, lisinopril 10 mg twice daily changed to losartan 25 mg BID, maintain on other meds
3. History of giant cell arteritis
History of PM
- Patient had mainly symptoms of jaw claudication/unilateral headache. Visual loss already present with congenital cataract
- No formal temporal biopsy done
- Patient was managed with Actemra 2 weeks
- Prednisone was on 1 mg daily which was increased to 15 mg daily after patient having new symptoms earlier in week, continue same dose for now
- Dr. Christine Villeda is patient's primary rheumatology. Discussed with groups on-call rheumatology who recommended to continue current dose of steroid and will discuss with Dr. Villeda on Sunday,
4. History of atrial fibrillation status post ablation
History of pacemaker placed
H/o s/p mechanical AVR
-EKG reviewed and currently in atrial paced rhythm
-Maintain on home dose of warfarin, INR goal of 2-3, remains theraputic.
DVT PPX - warfarin
Full code
Anticipated Discharge: Today
Subjective/Interval History
-
Date of Service: January 03, 2025
No further episodes of similar symptoms that patient presented
No reported dizziness/syncope
Objective Data
-
Labs:
Laboratory Results
01/03/25
06:05
WBC 9.2
Hgb 14.1
Hct 41.0
Plt Count 157
Sodium 140
Potassium 4.1
Chloride 109 H
Carbon Dioxide 27
BUN 19 H
Creatinine 0.6
Glucose 95
Calcium 9.1
Vital Signs:
Vital Signs
Temp Pulse Resp BP Pulse Ox
98.1 F 65 16 182/76 96
01/03/25 11:26 01/03/25 11:26 01/03/25 11:26 01/03/25 11:26 01/03/25 11:26
I&O
01/02/25 01/03/25 01/04/25
06:59 06:59 06:59
Intake Total 480 / 480
Balance 480 / 480
Review of Systems
-
Respiratory: Reports No Symptoms
Cardiac: Reports No Symptoms
Abdomen/GI: Reports No Symptoms
Physical Exam
-
General: No Apparent Distress and Comfortable
HEENT: Negative Oxygen
Respiratory: Clear to Auscultation
Cardiac: Regular Rhythm and S1/S2; Negative Murmur or Rub
GI: Soft, Nontender, Nondistended and Normal Bowel Sounds
Musculoskeletal: No Edema
Neuro: Awake, Alert, Oriented, No Motor Deficits and Nonfocal/Grossly Intact
Psych: Calm
--- NOTE | 2025-01-03 16:14 | CM ---
MD entered order for discharge.
Spoke with pt and dgt Alicia BP being monitored and medicine change today.
Pt will be driven home by dgt at [place].
PLAN Home no needs
[2025-01-03] MEDS: COUMADIN 6 MG PO (17:25)
[2025-01-03] MEDS: CRESTOR 10 MG PO (20:47)
[2025-01-03] MEDS: COZAAR 50 MG PO (20:47)
[2025-01-03] MEDS: TOPROL XL 50 MG PO (20:47)
[2025-01-04 03:00] VITALS: BP 150/67
[2025-01-04] MEDS: SYNTHROID 100 MCG PO (06:00)
[2025-01-04 07:30] VITALS: BP 153/68
[2025-01-04] MEDS: VITAMIN C 1000 MG PO (08:13)
[2025-01-04] MEDS: KCL 20 MEQ PO (08:13)
[2025-01-04] MEDS: TOPROL XL 100 MG PO (08:13)
[2025-01-04] MEDS: DELTASONE 15 MG PO (08:13)
[2025-01-04] MEDS: COZAAR 50 MG PO (08:13)
[2025-01-04] MEDS: THERAGRAN 1 TABLET PO (08:14)
[2025-01-04] MEDS: LASIX 40 MG PO (08:14)
[2025-01-04] MEDS: POLYTRIM OPHTHALMIC SOLUTION 1 DROP RIGHT EYE (08:14)
[2025-01-04] MEDS: ALPHAGAN P 0.15% EYE DROPS 1 DROP RIGHT EYE (08:14)
[2025-01-04 09:19] LABS: Blood Urea Nitrogen 18 mg/dl (7-17); Calcium 9.3 mg/dl (8.4-10.2); Carbon Dioxide 35 mmol/L (22-30); Chloride 106 mmol/L (98-107); Estimated Creatinine Clearance 74 ml/min; Glucose 94 mg/dl (70-99); Potassium 4.1 mmol/L (3.5-5.1); Sodium 144 mmol/L (135-145); eGFR > 60.00
[2025-01-04 10:49] VITALS: BP 155/73; PULSE 73; O2SAT 96
[2025-01-04 10:50] VITALS: BP 155/73
[2025-01-04] MEDS: POLYTRIM OPHTHALMIC SOLUTION RIGHT EYE (12:01)
--- NOTE | 2025-01-04 12:40 | CM ---
MD entered order for discharge.
Spoke with pt she agrees with dc today .
her dgt Keily will drive her home today.
Offered VN she declined need.
PLAN Home no needs
--- NOTE | 2025-01-04 12:42 | W.PN.HOSP.TC ---
Today's Communication/Plan
-
d/c home
Assessment / Plan
Assessment / Plan
1. Perioral and left hand numbness
- Symptoms mainly occurring when patient was feeling dizzy as well
- Spontaneous resolution without any further intervention
- Denies previous history of TIA/CVA
- Has a history of GCA, ESR/CRP negative. CTA h&n did not show acute abnormality. MRA head and neck not indicated as no clear supporting evidence of GCA flareup.
- Neurology evaluated and care plan discussed with on-call family psychologist who agreed with patient to be continued on home dose of prednisone 15mg/d
2. Presyncope
Essential HTN - uncontrolled
- Recommended patient to wear compression stockings
- Lisinopril 10 mg twice daily changed to losartan 50 mg BID, systolic blood pressure in 1 4160 range. Would avoid further escalation as patient already have dizziness episodes at home
3. History of giant cell arteritis
History of PM
- Patient had mainly symptoms of jaw claudication/unilateral headache. Visual loss already present with congenital cataract
- No formal temporal biopsy done
- Patient was managed with Actemra 2 weeks
- Prednisone was on 1 mg daily which was increased to 15 mg daily after patient having new symptoms earlier in week, continue same dose for now
- Dr. Christine Villeda is patient's primary rheumatology. Discussed with groups on-call rheumatology who recommended to continue current dose of steroid and will discuss with Dr. Villeda on Sunday,
4. History of atrial fibrillation status post ablation
History of pacemaker placed
H/o s/p mechanical AVR
-EKG reviewed and currently in atrial paced rhythm
-Maintain on home dose of warfarin, INR goal of 2-3, remains theraputic.
DVT PPX - warfarin
Full code
Anticipated Discharge: Today
Subjective/Interval History
-
Date of Service: January 04, 2025
no issues overnight
Objective Data
-
Labs:
Laboratory Results
01/04/25
08:35
Sodium 144
Potassium 4.1
Chloride 106
Carbon Dioxide 35 H
BUN 18 H
Creatinine 0.6
Glucose 94
Calcium 9.3
Vital Signs:
Vital Signs
Temp Pulse Resp BP Pulse Ox
99.5 F 73 17 155/73 98
01/04/25 10:50 01/04/25 10:50 01/04/25 10:50 01/04/25 10:50 01/04/25 10:50
I&O
01/03/25 01/04/25 01/05/25
06:59 06:59 06:59
Intake Total 480 / 480 480 / 480
Balance 480 / 480 480 / 480
Review of Systems
-
Respiratory: Reports No Symptoms
Cardiac: Reports No Symptoms
Abdomen/GI: Reports No Symptoms
Physical Exam
-
General: No Apparent Distress and Comfortable
HEENT: Negative Oxygen
Respiratory: Clear to Auscultation
Musculoskeletal: No Edema
Neuro: Awake, Alert, Oriented, No Motor Deficits and Nonfocal/Grossly Intact
Psych: Calm
--- NOTE | 2025-01-04 13:36 | W.DCSUMMARY ---
Discharge Summary
Discharge Data
Date of Admission: 01/02/25
Date of Discharge: 01/04/25
-
Pending Results: No
Hospital Course
Discharging Physician : Dr Lupillo Ponce
Disposition : Home
Primary care physician : Dr Jesus Morales
Principal Discharge diagnosis :
Perioral/left hand numbness
Uncontrolled essential hypertension
Presyncope
Chronic Discharge diagnosis :
Giant cell arteritis
Polymyalgia rheumatica
History of atrial fibrillation status post ablation
History of pacemaker placement
History of aortic stenosis status post mechanical aortic valve replacement
Hospital Course :
Patient is 75-year-old female who presented mainly for 2 episodes of dizziness and some perioral/left hand numbness which resolved by the time in the ER. Both episode happened over 4 days apart with no other major neurological symptoms. Patient
had contacted her primary stripe matcher who had advised for patient to be started on higher dose of prednisone for some atypical headache associated with the symptoms. In ER there was question of patient possibly having GCA flareup although
ESR/CRP was nondetectable. CTA head and neck was done which ruled out any flow-limiting stenosis. Neurology evaluated patient and discussed care with primary stripe matcher, no further imaging warranted in light of atypical presentation and
resolution of symptoms. Patient did have elevated blood pressure and might be playing a role in headache symptoms before admission. Patient blood pressure medication was adjusted and started on losartan. Blood pressure has improved although not
perfect but excessive uptitration has been avoided with concern of dizziness episode. Patient is planning to follow-up with cardiology and rheumatology in office.
Important imaging findings :
None
Procedure findings :
None
Discharge Plan
-
Patient Disposition: Home (Routine Discharge)
Discharge Diagnosis/Procedures: Pre-syncope, neurological symptoms
Condition: Fair
Diet: Regular
Activity: As tolerated
Driving Restrictions: As prior to admission
Bathing Restrictions: OK to Shower
Referrals:
Tony Lerner CRNP [Family Provider, [facility]] - in one week
Prescriptions:
New
losartan 50 mg tablet
50 mg PO BID Qty: 60 1RF
Continued
levothyroxine 100 MCG tablet
100 mcg PO DAILY
warfarin [Jantoven] 2 MG tablet
4 mg PO TU
warfarin [Jantoven] 2 MG tablet
6 mg PO SUSA
Rx Instructions:
everyday besides sunday
metoprolol succinate 100 MG tablet extended release 24 hr
100 mg PO DAILY
potassium chloride [Klor-Con M20] 20 MEQ tablet,ER particles/crystals
20 meq PO DAILY
rosuvastatin 10 MG tablet
10 mg PO HS
furosemide [Lasix] 40 MG tablet
40 mg PO DAILY Qty: 0 0RF
prednisone 5 MG tablet
15 mg PO DAILY
metoprolol succinate 50 mg Tablet Extended Release 24 Hr
50 mg PO HS
multivitamin Tablet
1 tab PO DAILY
Vitamin C 1,000 mg Tablet Extended Release
1,000 mg PO DAILY
meclizine 25 mg tablet
25 mg PO TIDPRN PRN (Reason: VERTIGO)
polymyxin B sulf-trimethoprim 10,000 unit- 1 mg/mL drops
1 drp RIGHT EYE QID
brimonidine 0.15 % drops
1 drp RIGHT EYE BID
cinnamon bark [Cinnamon] 500 mg Capsule
1,000 mg PO DAILY
Prolia 60 mg/mL Syringe
60 mg SC [id number]
Probiotic 3 billion cell Capsule
3 mmu cells PO DAILY
Discontinued
lisinopril 10 mg tablet
10 mg PO BID
Discharge Orders:
Discharge Patient (As Directed); Ordered 01/04/25
Ordered By: Lupillo Ponce
Discharge Date and Time
Print Language: PALESTINIAN
== END 2025-01-04 14:04 | disposition home or self-care (01) ==
LOC: 3 WEST ACU 15:55
PROVIDERS: Registered Nurse; ADMITTING PHYSICIAN Hospitalist; CONSULT PHYSICIAN Psychiatry & Neurology Neurology; EMERGENCY PHYSICIAN Student in an Organized Health Care Education/Training Program; FAMILY PHYSICIAN Nurse Practitioner Family
DX: R20.2 Paresthesia of skin (principal); R20.0 Anesthesia of skin; I10 Essential (primary) hypertension; M31.5 Giant cell arteritis with polymyalgia rheumatica; R55 Syncope and collapse; R42 Dizziness and giddiness; I48.91 Unspecified atrial fibrillation; I35.0 Nonrheumatic aortic (valve) stenosis; R11.2 Nausea with vomiting, unspecified; H55.00 Unspecified nystagmus; R51.9 Headache, unspecified; E78.00 Pure hypercholesterolemia, unspecified; H54.62 Unqualified visual loss, left eye, normal vision right eye; E03.9 Hypothyroidism, unspecified; H35.30 Unspecified macular degeneration; H11.31 Conjunctival hemorrhage, right eye; H50.89 Other specified strabismus; Q12.0 Congenital cataract; Z85.43 Personal history of malignant neoplasm of ovary; Z87.891 Personal history of nicotine dependence; Z95.0 Presence of cardiac pacemaker; Z87.440 Personal history of urinary (tract) infections; Z79.01 Long term (current) use of anticoagulants; Z66 Do not resuscitate; Z90.89 Acquired absence of other organs; Z88.5 Allergy status to narcotic agent; Z79.899 Other long term (current) drug therapy; Z79.890 Hormone replacement therapy; Z95.2 Presence of prosthetic heart valve; Z91.040 Latex allergy status; Z79.52 Long term (current) use of systemic steroids; M81.0 Age-related osteoporosis without current pathological fracture; I45.10 Unspecified right bundle-branch block; G31.9 Degenerative disease of nervous system, unspecified
CPT/HCPCS: 70450; 70496; 70498; 80048; 82607; 82746; 84443; 85025; 85027; 85610; 85652; 86140; 93005; 97116; 99285; G0378; Q9967

== ENCOUNTER → 2025-02-04 10:07 | Outpatient (REF) | payer MEDICARE, OTHER, SELFPAY ==
[2025-02-04 13:44] LABS: INR 6.27; PT 55.1 Sec (11.4-14.6)
== END ==
LOC: HWLAB 10:07
PROVIDERS: ATTENDING PHYSICIAN Internal Medicine Cardiovascular Disease; FAMILY PHYSICIAN Nurse Practitioner Family
DX: I48.0 Paroxysmal atrial fibrillation (principal)
CPT/HCPCS: 36415; 85610